=== PATIENT | male | born 1995 | race African-American/Black ===

== ENCOUNTER 2016-04-18 20:32 | Emergency (ER) | payer SELFPAY ==
[~2016-04-18] VITALS: Ht 182.9 cm; Wt 71.0 kg
[2016-04-18 20:35] VITALS: BP 134/85; PULSE 70; RESP 16; TEMP 97.9; O2SAT 98
[2016-04-18] MEDS ORDERED: PROPARACAINE HCL 0.5% OPHT SOLN 15 ML BTL LEFT EYE ONE (21:00)
--- NOTE | 2016-04-18 21:07 | PD ---
HPI Chief Complaint: Eye Problems/Injury Time Seen by Provider: 20:50 Travel History International Travel<30 days: No Contact w/Intl Traveler<30days: No Traveled to known affect area: No History of Present Illness HPI 20-year-old male who presents for evaluation of left eye irritation, foreign body sensation. This afternoon the patient was playing basketball outside. He reports that he threw the ball to someone else and he felt like a piece of dirt went into his left eye. Since then he has had irritation, foreign body sensation in left eye, unrelieved with attempts at washing his eye out at home. No blurred vision. He does not wear contacts or glasses. No other complaints. PFSH Past Medical History Cardiomyopathy: Yes (heart murmur at ) Cardiovascular Problems: Yes (MURMUR, PERICARDITIS) Diminished Hearing: No Immunizations Current: No (unknown) Tetanus Vaccination: < 5 Years Influenza Vaccination: Yes Social History Alcohol Use: No Tobacco Use: No Substance Use: No Allergies-Medications (Allergen,Severity, Reaction): Coded Allergies: Penicillin (Verified Allergy, Severe, Hives, 04/18/16) Reported Meds & Prescriptions Reported Meds & Active Scripts Active No Active Prescriptions or Reported Medications Review of Systems Eyes: Positive: Redness, Foreign Body Sensation, Pain, No: Blurred Vision Physical Exam Narrative GENERAL: Well-developed well-nourished male in no acute distress SKIN: Warm and dry. HEAD: Atraumatic. Normocephalic. EYES: Pupils equal and round reactive to light extraocular muscles are intact. There is left eye conjunctival injection. The left upper eyelid was everted and there was a small black foreign body, likely dirt, lodged underneath the eyelid. Wood's lamp reveals no area of increased corneal uptake, negative Bacilio's. Data Data Last Documented VS Vital Signs Date Time Temp Pulse Resp B/P Pulse Ox O2 Delivery O2 Flow Rate FiO2 04/18/16 20:35 97.9 70 16 134/85 98 Orders Proparacaine 0.5% Opth Soln (Alcaine 0.5 (04/18/16 21:00) MDM Medical Decision Making Medical Screen Exam Complete: Yes Emergency Medical Condition: Yes Medical Record Reviewed: Yes Differential Diagnosis Left eye foreign body, corneal abrasion, ruptured globe, conjunctivitis, iritis , acute angle-closure glaucoma, endophthalmitis, scleral laceration Narrative Course 20-year-old male presents with left eye irritation, foreign body sensation which began after playing basketball outside this afternoon. On examination he has left eye conjunctival injection, small dirt foreign body lodged underneath the left upper eyelid. This was removed utilizing a Q-tip. Repeat examination reveals no evidence of retained foreign body. Wong lamp is negative for corneal abrasion, corneal rupture. The patient feels improved after the administration of proparacaine. He is stable for discharge. Diagnosis Primary Impression: Foreign body of left eye Qualified Code: T15.92XA - Foreign body of left eye, initial encounter Additional Instructions: Follow-up with your primary care physician as needed. Return for any emergent medical conditions. Med/Other Pt SpecificInfo: No Change to Meds Scripts No Active Prescriptions or Reported Meds Disposition: 01 DISCHARGE HOME Condition: Stable Balbir Aguilar Apr 18, 2016 21:07
== END 2016-04-18 21:12 | disposition home or self-care (01) ==
LOC: NEPB 20:32
DX: T15.92XA Foreign body on external eye, part unspecified, left eye, initial encounter (principal)
CPT/HCPCS: 99283

== ENCOUNTER 2016-06-15 19:52 | Emergency (ER) | payer SELFPAY ==
[~2016-06-15] VITALS: Ht 185.4 cm; Wt 68.0 kg
[2016-06-15 19:53] VITALS: BP 132/87; PULSE 71; RESP 18; TEMP 98.1; O2SAT 97
[2016-06-15] MEDS ORDERED: DICL75TA PO (20:49)
--- NOTE | 2016-06-15 20:53 | PD ---
HPI Chief Complaint: Injury Time Seen by Provider: 20:51 Travel History International Travel<30 days: No Contact w/Intl Traveler<30days: No Traveled to known affect area: No History of Present Illness HPI 21 year old black male presents to emergency Department with complaints of left knee pain. He states that he was playing basketball this evening at the gym. He states that his left knee buckled when he went up to block a shot. Since then he has had pain diffusely in the knee. He denies any locking. He denies any prior injury. Pain is moderate. Worse with weightbearing. Some relief with elevation. PFSH Past Medical History Cardiovascular Problems: Yes (MURMUR) Diminished Hearing: No Immunizations Current: No (unknown) Tetanus Vaccination: < 5 Years Past Surgical History Surgical History: No Previous Surgery Social History Alcohol Use: No Tobacco Use: No Substance Use: No Allergies-Medications (Allergen,Severity, Reaction): Coded Allergies: Penicillin (Verified Allergy, Severe, Hives, 06/15/16) Reported Meds & Prescriptions Reported Meds & Active Scripts Active Diclofenac Sodium DR (Diclofenac Sodium) 75 Mg Tabdr 75 Mg PO BID Review of Systems Except as stated in HPI: all other systems reviewed are Neg Physical Exam Narrative GENERAL: This is a well-nourished, well-developed patient, in no apparent distress. SKIN: No rashes, ecchymoses or lesions. Warm and dry. HEAD: Atraumatic. Normocephalic. EYES: PERRL, EOMI, no discharge or injection. No scleral icterus. EARS: Clear NOSE: Nasal turbinates appear normal. THROAT: Mucosa pink and moist. Airway patent. NECK: Trachea midline. supple, moves head freely. LUNGS: Clear to auscultation. CV: Regular in rhythm. ABDOMEN: Soft nontender. EXT: No clubbing cyanosis or edema. Examination left lower extremity reveals no joint effusion. He is full extension but has limited flexion due to pain. No anterior posterior draw. No medial lateral collateral ligament instability or pain. No meniscal pain on testing. Skin is intact. No pain with hip, ankle or foot. Data Data Last Documented VS Vital Signs Date Time Temp Pulse Resp B/P Pulse Ox O2 Delivery O2 Flow Rate FiO2 06/15/16 19:53 98.1 71 18 132/87 97 Room Air Orders Knee, Complete (4vws) (06/15/16 20:25) Ice/Cold Pack (06/15/16 20:25) Splint Or Brace Apply/Monitor (06/15/16 20:49) Crutches (06/15/16 20:49) Naproxen (Naprosyn) (06/15/16 21:00) MDM Medical Decision Making Medical Screen Exam Complete: Yes Emergency Medical Condition: Yes Medical Record Reviewed: Yes Interpretation(s) Left knee: Negative for bony injury. No effusion. Differential Diagnosis MDM: High Differential diagnoses: Fracture, sprain, strain, dislocation, contusion, neurovascular injury Narrative Course Patient's given John wrap, ice pack, crutches and Naprosyn 500 mg by mouth. This is left knee sprain Diagnosis Primary Impression: Left knee sprain Patient Instructions: General Instructions Additional Instructions: Rest. Elevation. Ice packs for the next 3 days. John wrap and crutches. No weight-bearing and then progress to weight-bearing as tolerated. Medications as directed Follow-up with an orthopedist or your doctor in one week. Return to the ER if any problems Med/Other Pt SpecificInfo: Prescription(s) given Scripts Diclofenac Sodium DR 75 Mg Tabdr75 Mg PO BID #20 TAB Prov:Mena Alvarez MD 06/15/16 Disposition: 01 DISCHARGE HOME Condition: Stable Bhargav Arshad Jun 15, 2016 20:53
[2016-06-15] MEDS ORDERED: NAPROXEN 500 MG TAB PO ONE (21:00)
--- NOTE | 2016-06-15 21:18 | RADRPT ---
EXAM DATE/TIME: 06/15/2016 20:43 [facility] COMPARISON: No previous studies available for comparison. INDICATIONS : Left knee pain, hurt playing basketball. MEDICAL HISTORY : None. SURGICAL HISTORY : None. ENCOUNTER: Initial ACUITY: 1 day PAIN SCORE: 10/10 LOCATION: Left lateral knee FINDINGS: No definite fractures, or dislocations are identified. No definite lytic or sclerotic lesion is seen . The joint spaces are well maintained. CONCLUSION: Unremarkable study. Shadia Esquivel MD on June 15, 2016 at 21:16 Board Certified Radiologist. This report was verified electronically.
== END 2016-06-15 21:15 | disposition home or self-care (01) ==
LOC: NEPB 19:52
DX: S83.92XA Sprain of unspecified site of left knee, initial encounter (principal); Y93.39 Activity, other involving climbing, rappelling and jumping off; Y93.67 Activity, basketball; Y92.39 Other specified sports and athletic area as the place of occurrence of the external cause
CPT/HCPCS: 73564; 99283; E0113

== ENCOUNTER 2016-08-09 16:05 | Emergency (ER) | payer SELFPAY ==
[~2016-08-09] VITALS: Ht 185.4 cm; Wt 70.0 kg
[~2016-08-09 16:05] MED LIST: DICL75TA PO
[2016-08-09 16:06] VITALS: BP 120/70; PULSE 70; RESP 15; TEMP 98; O2SAT 98
--- NOTE | 2016-08-09 16:26 | PD ---
HPI Chief Complaint: Injury Time Seen by Provider: 16:21 Travel History International Travel<30 days: No Contact w/Intl Traveler<30days: No Traveled to known affect area: No History of Present Illness HPI 21-year-old male presents emergency Department with complaint of left knee pain 2 months after a basketball injury. He was seen here back in June for the knee injury. He denies new or recent injury. He was told to come in and be evaluated by his boss because he had pain in his knee overnight while at work. He has not followed up with primary care or orthopedic since he was seen here last. He has crutches and John bandage for support which she has not been using either. He has not taken any medications or tried any treatments recently to alleviate his symptoms. Denies fever, chills, nausea, vomiting. Denies paresthesias, loss of sensation, decreased range of motion, decreased strength to the affected extremity. Allergies to penicillin. No other medical complaints. No other modifying factors or associated signs and symptoms. History Social History Alcohol Use: No Tobacco Use: No Allergies-Medications (Allergen,Severity, Reaction): Coded Allergies: Penicillin (Verified Allergy, Severe, Hives, 08/09/16) Reported Meds & Prescriptions Reported Meds & Active Scripts Active Review of Systems Except as stated in HPI: all other systems reviewed are Neg Physical Exam Narrative GENERAL: Well-nourished, well-developed male patient, in no acute distress SKIN: Warm and dry. HEAD: Atraumatic. Normocephalic. EYES: Pupils equal and round. No scleral icterus. No injection or drainage. ENT: Mucosa pink and moist. Airway patent. NECK: Trachea midline. CARDIOVASCULAR: Regular rate. RESPIRATORY: No accessory muscle use. GASTROINTESTINAL: Flat. MUSCULOSKELETAL: Left knee is nonedematous, nonerythematous, and without ecchymosis; with full range of motion and flexion to 90; joint stable with negative drawer test; tenderness to the lateral aspect; no obvious deformity. Left lower extremities supple and nontender 2+ pedal pulses and sensory intact and without erythema or edema. Ambulatory with normal gait. No obvious deformity. No cyanosis. No edema. NEUROLOGICAL: Awake and alert. Oriented 3. No obvious cranial nerve deficits. Motor grossly within normal limits. Normal speech. PSYCHIATRIC: Appropriate mood and affect; insight and judgment normal. Data Data Last Documented VS Vital Signs Date Time Temp Pulse Resp B/P Pulse Ox O2 Delivery O2 Flow Rate FiO2 08/09/16 16:06 98.0 70 15 120/70 98 MDM Medical Screen Exam Complete: Yes Emergency Medical Condition: No Differential Diagnosis Knee sprain, knee pain, medical clearance Narrative Course 21-year-old male with left knee injury 2 months ago with continued pain. He was seen here on June 15 and a left knee x-ray was done and was unremarkable. He has had no new or recent injury. The patient is ambulatory on the affected extremity with a normal gait. He has not followed up outpatient. The patient has crutches and an John bandage at home for support. Vital signs are stable and the patient is stable for outpatient follow-up and treatment. The patient has no urgent or emergent medical complaints. There is no emergent or urgent medical need at this time. I instructed the patient to follow up with their primary care provider. A medical screening exam was performed: At the time of evaluation the presenting medical condition was determined not to be of an emergent nature. The patient was given the option of receiving additional care, but declined. Patient was given options for additional community resources from which to obtain care. The Patient Has Been advised to seek medical attention for their presenting complaint. The patient has been advised to return to the ER at any time if an emergent condition develops. Primary Impression: Encounter for medical screening examination Condition: Stable Gillian Pillai Aug 09, 2016 16:26
== END 2016-08-09 16:35 | disposition left against medical advice (07) ==
LOC: NEPK 16:05
DX: M25.562 Pain in left knee (principal); X58.XXXD Exposure to other specified factors, subsequent encounter
CPT/HCPCS: 99281

== ENCOUNTER 2016-09-10 14:33 | Emergency (ER) | payer SELFPAY ==
[~2016-09-10] VITALS: Ht 182.9 cm; Wt 70.0 kg
[2016-09-10 14:35] VITALS: BP 131/94; PULSE 58; RESP 14; TEMP 98; O2SAT 100
--- NOTE | 2016-09-10 14:44 | PD ---
HPI . chest pain and sob for 4 days Chief Complaint: Respiratory Symptoms Time Seen by Provider: 14:44 Travel History International Travel<30 days: No Contact w/Intl Traveler<30days: No Traveled to known affect area: No History of Present Illness HPI 21-year-old male with no significant past medical history here with complaints of shortness of breath and palpitations for the past 4 days. Patient tells me that he has had some intermittent chest discomfort and palpitations accompanied by some shortness of breath the past 4 days. He denies any similar episodes in the past and that this started at rest. He denies any aggravating or alleviating factors. He tells me there is no specific pattern to his symptoms. The pain is not reproducible. He denies any smoking or illegal drug use. He does have significant family history of heart disease and this issue has made him concerned of his well-being. He is accompanied by his grandmother. At this present time he admitted to some palpitations, but denies any pain. He does not have shortness of breath while here in the emergency department. He's previously been seen in the emergency department for chest pain. He also appears to have a history of panic attacks. He denies any nausea, vomiting or diaphoresis. PFSH Past Medical History Cardiovascular Problems: Yes (MURMUR) Diminished Hearing: No Immunizations Current: No (unknown) Social History Alcohol Use: No Tobacco Use: No Substance Use: No Allergies-Medications (Allergen,Severity, Reaction): Coded Allergies: Penicillin (Verified Allergy, Severe, Hives, 08/09/16) Reported Meds & Prescriptions Reported Meds & Active Scripts Active No Active Prescriptions or Reported Medications Review of Systems General / Constitutional: No: Fever Eyes: No: Visual changes HENT: No: Headaches Cardiovascular: Positive: Chest Pain or Discomfort, Palpitations, Tachycardia Respiratory: Positive: Shortness of Breath, No: Cough, Wheezing, Sneezing Gastrointestinal: No: Abdominal Pain Genitourinary: No: Dysuria Musculoskeletal: No: Pain Skin: No Rash Neurologic: No: Weakness Psychiatric: No: Depression Endocrine: No: Polydipsia Hematologic/Lymphatic: No: Easy Bruising Physical Exam Narrative GENERAL: AAO x 3, no acute distress, Well-nourished, well-developed patient. Comfortable in no signs of distress. SKIN: Warm and dry. No visible rashes or bruising. HEAD: Normocephalic and atraumatic. EYES: No scleral icterus. No injection or drainage. ENT: No nasal drainage noted. Mucous membranes pink. Airway patent. NECK: Supple, trachea midline. No JVD. CARDIOVASCULAR: Regular rate and rhythm without murmurs, gallops, or rubs. Nonreproducible chest pain on exam. RESPIRATORY: Breath sounds equal bilaterally. No accessory muscle use. No rhonchi or rales. GASTROINTESTINAL: Abdomen soft, non-tender, nondistended. EXTREMITIES: No cyanosis or edema. NEURO; CN II through XII intact, sausage stringer strength equal bilaterally. Motor function normal. Upper and lower extremity strength 5/5 BACK: Nontender without obvious deformity. No CVA tenderness. PSYCH: AAO x 3, normal affect. Data Data Last Documented VS Vital Signs Date Time Temp Pulse Resp B/P Pulse Ox O2 Delivery O2 Flow Rate FiO2 09/10/16 14:35 98.0 58 14 131/94 100 Orders Electrocardiogram (09/10/16 14:50) Basic Metabolic Panel (Bmp) (09/10/16 14:50) Ckmb (Isoenzyme) Profile (09/10/16 14:50) Complete Blood Count With Diff (09/10/16 14:50) D-Dimer (09/10/16 14:50) Magnesium (Mg) (09/10/16 14:50) Prothrombin Time / Inr (Pt) (09/10/16 14:50) Act Partial Throm Time (Ptt) (09/10/16 14:50) Troponin I (09/10/16 14:50) Chest, Single Ap (09/10/16 14:50) Iv Access Insert/Monitor (09/10/16 14:50) Sodium Chloride 0.9% Flush (Ns Flush) (09/10/16 15:00) CKMB (09/10/16 15:04) CKMB% (09/10/16 15:04) Labs Laboratory Tests Test 09/10/16 15:04 White Blood Count 7.9 TH/MM3 Red Blood Count 4.91 MIL/MM3 Hemoglobin 14.6 GM/DL Hematocrit 42.3 % Mean Corpuscular Volume 86.2 FL Mean Corpuscular Hemoglobin 29.8 PG Mean Corpuscular Hemoglobin 34.6 % Concent Red Cell Distribution Width 13.4 % Platelet Count 253 TH/MM3 Mean Platelet Volume 7.6 FL Neutrophils (%) (Auto) 58.8 % Lymphocytes (%) (Auto) 27.9 % Monocytes (%) (Auto) 10.7 % Eosinophils (%) (Auto) 2.3 % Basophils (%) (Auto) 0.3 % Neutrophils # (Auto) 4.6 TH/MM3 Lymphocytes # (Auto) 2.2 TH/MM3 Monocytes # (Auto) 0.8 TH/MM3 Eosinophils # (Auto) 0.2 TH/MM3 Basophils # (Auto) 0.0 TH/MM3 CBC Comment DIFF FINAL Differential Comment Prothrombin Time 11.4 SEC Prothromb Time International 1.0 RATIO Ratio Activated Partial 29.9 SEC Thromboplast Time D-Dimer Quantitative (PE/DVT) LESS THAN 0.19 MG/L FEU Sodium Level 142 MEQ/L Potassium Level 3.5 MEQ/L Chloride Level 102 MEQ/L Carbon Dioxide Level 30.2 MEQ/L Anion Gap 10 MEQ/L Blood Urea Nitrogen 10 MG/DL Creatinine 0.97 MG/DL Estimat Glomerular Filtration 116 ML/MIN Rate Random Glucose 81 MG/DL Calcium Level 9.4 MG/DL Magnesium Level 2.2 MG/DL Total Creatine Kinase 260 U/L Creatine Kinase MB LESS THAN 0.5 NG/ML Troponin I LESS THAN 0.02 NG/ML MDM Medical Decision Making Medical Screen Exam Complete: Yes Emergency Medical Condition: Yes Medical Record Reviewed: Yes Differential Diagnosis Pericarditis, less likely ACS, anxiety, costochondritis, pulmonary emboli Narrative Course 21-year-old male here with complaints of intermittent chest pain and shortness of breath. EKG obtained and demonstrated some ST elevation, however this is similar to prior EKGs. Labs have been ordered. Last Impressions Chest X-Ray 09/10/16 1450 Signed Impressions: Service Date/Time: Saturday, September 10, 2016 14:47 - CONCLUSION: No acute disease. Jaiden Ibanez MD [id number]: results reviewed: NO acute abn. Case discussed with Dr. Corral, who recommends discharge. Discussed with patient who is resting comfortably in bed playing on cell phone. He had similar issues in 2014 and had a workup including Echo all WNL. He was recommended to f/u with cardiology. I recommend he f/u with PCP for referral to cardiology and further recommendations. I think he may have some underlying anxiety. Both him and grandma verbalized understanding. Laboratory Tests Test 09/10/16 15:04 White Blood Count 7.9 TH/MM3 Red Blood Count 4.91 MIL/MM3 Hemoglobin 14.6 GM/DL Hematocrit 42.3 % Mean Corpuscular Volume 86.2 FL Mean Corpuscular Hemoglobin 29.8 PG Mean Corpuscular Hemoglobin 34.6 % Concent Red Cell Distribution Width 13.4 % Platelet Count 253 TH/MM3 Mean Platelet Volume 7.6 FL Neutrophils (%) (Auto) 58.8 % Lymphocytes (%) (Auto) 27.9 % Monocytes (%) (Auto) 10.7 % Eosinophils (%) (Auto) 2.3 % Basophils (%) (Auto) 0.3 % Neutrophils # (Auto) 4.6 TH/MM3 Lymphocytes # (Auto) 2.2 TH/MM3 Monocytes # (Auto) 0.8 TH/MM3 Eosinophils # (Auto) 0.2 TH/MM3 Basophils # (Auto) 0.0 TH/MM3 CBC Comment DIFF FINAL Differential Comment Prothrombin Time 11.4 SEC Prothromb Time International 1.0 RATIO Ratio Activated Partial 29.9 SEC Thromboplast Time D-Dimer Quantitative (PE/DVT) LESS THAN 0.19 MG/L FEU Sodium Level 142 MEQ/L Potassium Level 3.5 MEQ/L Chloride Level 102 MEQ/L Carbon Dioxide Level 30.2 MEQ/L Anion Gap 10 MEQ/L Blood Urea Nitrogen 10 MG/DL Creatinine 0.97 MG/DL Estimat Glomerular Filtration 116 ML/MIN Rate Random Glucose 81 MG/DL Calcium Level 9.4 MG/DL Magnesium Level 2.2 MG/DL Total Creatine Kinase 260 U/L Creatine Kinase MB LESS THAN 0.5 NG/ML Troponin I LESS THAN 0.02 NG/ML Patient verbalized understanding of instructions, questions were answered, and thanked me for their care. I advised them if their condition worsens, please return to the nearest emergency room for further care. Diagnosis Primary Impression: Atypical chest pain Patient Instructions: General Instructions Additional Instructions: Please follow-up with your primary care provider. Return to the emergency department if your symptoms return or worsen Med/Other Pt SpecificInfo: No Change to Meds Scripts No Active Prescriptions or Reported Meds Disposition: 01 DISCHARGE HOME Condition: Stable Leonela Sheets September 10, 2016 14:44
[2016-09-10] MEDS ORDERED: SODIUM CHLORIDE 0.9% FLUSH 10 ML FLUSH IVF PRN (15:00)
--- NOTE | 2016-09-10 15:01 | RADRPT ---
EXAM DATE/TIME: 09/10/2016 14:47 [facility] COMPARISON: CHEST SINGLE AP, October 30, 2015, 21:38. INDICATIONS : Chest pain MEDICAL HISTORY : None. SURGICAL HISTORY : None. ENCOUNTER: Initial ACUITY: 2 days PAIN SCORE: 1/10 LOCATION: Bilateral chest FINDINGS: A single view of the chest demonstrates the lungs to be symmetrically aerated without evidence of mas s, infiltrate or effusion. The cardiomediastinal contours are unremarkable. Osseous structures are intact. CONCLUSION: No acute disease. Jaiden Ibanez MD on September 10, 2016 at 14:59 Board Certified Radiologist. This report was verified electronically.
[2016-09-10 15:21] LABS: AUTOMATED NEUTROPHIL # 4.6 TH/MM3 (1.8-7.7); BASOPHIL % 0.3 % (0.0-2.0); EOSINOPHIL # 0.2 TH/MM3 (0-0.4); EOSINOPHIL % 2.3 % (0.0-4.0); HEMATOCRIT 42.3 % (39.0-51.0); HEMO FLAGS DIFF FINAL; LYMPH % 27.9 % (9.0-44.0); LYMPHOCYTE # 2.2 TH/MM3 (1.0-4.8); MEAN CELL VOLUME 86.2 FL (80.0-100.0); MEAN CORPUSCULAR HEMOGLOBIN 29.8 PG (27.0-34.0); MEAN CORPUSCULAR HGB CONC 34.6 % (32.0-36.0); MONO % 10.7 % (0.0-8.0); NEUT % 58.8 % (16.0-70.0); PLATELET COUNT 253 TH/MM3 (150-450); RED BLOOD COUNT 4.91 MIL/MM3 (4.50-5.90); RED CELL DISTRIBUTION WIDTH 13.4 % (11.6-17.2); WHITE BLOOD COUNT 7.9 TH/MM3 (4.0-11.0)
--- NOTE | 2016-09-10 15:21 | PD ---
HPI Chief Complaint: Respiratory Symptoms Time Seen by Provider: 14:44 Travel History International Travel<30 days: No Contact w/Intl Traveler<30days: No Traveled to known affect area: No History of Present Illness HPI 21-year-old male complains of intermittent palpitation and shortness of breath. Patient states that the symptoms started 4 days ago at rest. Patient states that the symptoms are worse with exertion. Patient denies any cough and congestion. Patient states that he has occasional discomfort substernally. Patient denies any pain radiation. Patient denies any nausea vomiting diaphoresis. Patient denies any fever chills. Patient denies any history of CAD disease. Patient denies history hypertension, diabetes, dyslipidemia. Patient is a nonsmoker. Patient denies any history of alcohol or drug abuse. Patient has family history of heart disease. Patient states that he has no chest pain now. Patient complaining of short is of breath. PFSH Past Medical History Cardiovascular Problems: Yes (MURMUR) Diminished Hearing: No Immunizations Current: No (unknown) Social History Alcohol Use: No Tobacco Use: No Substance Use: No Allergies-Medications (Allergen,Severity, Reaction): Coded Allergies: Penicillin (Verified Allergy, Severe, Hives, 08/09/16) Reported Meds & Prescriptions Reported Meds & Active Scripts Active No Active Prescriptions or Reported Medications Review of Systems General / Constitutional: No: Fever Eyes: No: Visual changes HENT: No: Headaches Cardiovascular: Positive: Palpitations, No: Chest Pain or Discomfort Respiratory: Positive: Shortness of Breath Gastrointestinal: No: Abdominal Pain Genitourinary: No: Dysuria Musculoskeletal: No: Pain Skin: No Rash Neurologic: No: Weakness Psychiatric: No: Depression Endocrine: No: Polydipsia Hematologic/Lymphatic: No: Easy Bruising Physical Exam Narrative GENERAL: Well-nourished, well-developed patient. SKIN: Focused skin assessment warm/dry. HEAD: Normocephalic. EYES: No scleral icterus. No injection or drainage. NECK: Supple, trachea midline. No JVD or lymphadenopathy. CARDIOVASCULAR: Regular rate and rhythm without murmurs, gallops, or rubs. RESPIRATORY: Breath sounds equal bilaterally. No accessory muscle use. GASTROINTESTINAL: Abdomen soft, non-tender, nondistended. MUSCULOSKELETAL: No cyanosis, or edema. BACK: Nontender without obvious deformity. No CVA tenderness. Neurologic exam normal. Data Data Last Documented VS Vital Signs Date Time Temp Pulse Resp B/P Pulse Ox O2 Delivery O2 Flow Rate FiO2 09/10/16 14:35 98.0 58 14 131/94 100 Orders Electrocardiogram (09/10/16 14:50) Basic Metabolic Panel (Bmp) (09/10/16 14:50) Ckmb (Isoenzyme) Profile (09/10/16 14:50) Complete Blood Count With Diff (09/10/16 14:50) D-Dimer (09/10/16 14:50) Magnesium (Mg) (09/10/16 14:50) Prothrombin Time / Inr (Pt) (09/10/16 14:50) Act Partial Throm Time (Ptt) (09/10/16 14:50) Troponin I (09/10/16 14:50) Chest, Single Ap (09/10/16 14:50) Iv Access Insert/Monitor (09/10/16 14:50) Sodium Chloride 0.9% Flush (Ns Flush) (09/10/16 15:00) MDM Medical Decision Making Medical Screen Exam Complete: Yes Emergency Medical Condition: Yes Medical Record Reviewed: Yes Interpretation(s) 1521 PM. EKG shows sinus rhythm with diffuse ST elevation typical of early repolarization. Unchanged from previous EKG. Differential Diagnosis Differential diagnosis including URI, cardiac arrhythmia, bronchitis, pneumonia , angina, IN, PE, pneumothorax, pericarditis, myocarditis. Narrative Course 21-year-old male with intermittent shortness of breath and palpitation. Scripts No Active Prescriptions or Reported Meds Isreal Corral MD September 10, 2016 15:21
[2016-09-10 15:45] LABS: CREATINE KINASE 260 U/L (39-308)
[2016-09-10 15:50] LABS: APTT (PATIENT) 29.9 SEC (24.3-30.1); PROTHROMBIN TIME - PATIENT 11.4 SEC (9.8-11.6)
[2016-09-10 15:57] LABS: ANION GAP 10 MEQ/L (5-15); BICARBONATE 30.2 MEQ/L (21.0-32.0); BLOOD UREA NITROGEN 10 MG/DL (7-18); CHLORIDE 102 MEQ/L (98-107); CKMB LESS THAN 0.5 NG/ML (0.5-3.6); GLOMERULAR FILTRATION RATE 116 ML/MIN (>89); MAGNESIUM 2.2 MG/DL (1.5-2.5); POTASSIUM 3.5 MEQ/L (3.5-5.1); SODIUM (NA) 142 MEQ/L (136-145)
--- NOTE | 2016-09-10 17:06 | EKG ---
Date Performed: 09/10/2016 Time Performed: 14:59:19 PTAGE: 21 years EKG: Sinus rhythm Anterior ST elevation consistent with injury, early repolarization R. pericarditis. This is not sig nificantly changed. PREVIOUS TRACING : 10/30/2015 21.28 DOCTOR: Franki Burton Interpretating Date/Time 09/10/2016 17:04:50
== END 2016-09-10 16:14 | disposition home or self-care (01) ==
LOC: NEPD 14:33
DX: R07.89 Other chest pain (principal); R06.02 Shortness of breath; R00.2 Palpitations
CPT/HCPCS: 71010; 80048; 82550; 82552; 83735; 84484; 85025; 85379; 85610; 85730; 93005; 99285

== ENCOUNTER 2016-09-24 10:10 | Emergency (ER) | payer SELFPAY ==
[~2016-09-24] VITALS: Ht 182.9 cm; Wt 68.0 kg
[2016-09-24 10:12] VITALS: BP 138/74; PULSE 84; RESP 16; TEMP 98.2; O2SAT 98
[2016-09-24] MEDS ORDERED: ONDANSETRON HCL 4 MG/2 ML VIAL IVP ONE (11:00)
[2016-09-24] MEDS ORDERED: KETOROLAC TROMETHAMINE 30 MG/ML (IVP) VIAL IVP ONE (11:00)
[2016-09-24] MEDS ORDERED: SODIUM CHLORIDE 0.9% FLUSH 10 ML FLUSH IV FLUSH PRN (11:00)
[2016-09-24] MEDS ORDERED: LIDOCAINE VISCOUS 2% SOLN 15 ML UDC PO ONE (11:00)
[2016-09-24] MEDS ORDERED: ALUMINUM/MAGNESIUM/SIMETH 30 ML CUP PO ONE (11:00)
--- NOTE | 2016-09-24 11:12 | PD ---
HPI Chief Complaint: GI Complaint Time Seen by Provider: 10:54 Travel History International Travel<30 days: No Contact w/Intl Traveler<30days: No Traveled to known affect area: No History of Present Illness HPI Healthy 21-year-old male here with complaint of epigastric and diffuse abdominal pain since approximately 9 PM yesterday. Patient states that he has had a burning achy type pain in the epigastrium that radiates throughout the abdomen. Associated nausea, vomiting 4. No hematemesis. No associated diarrhea, fevers, chills. No recent travel, sick contacts, raw undercooked food , meat, seafood or sushi. He's never previously had any hepatobiliary or pancreatic issues. He does not drink alcohol regularly. [facility] Past Medical History Medical History: Denies Significant Hx Cardiovascular Problems: Yes (MURMUR) Diminished Hearing: No Immunizations Current: No (unknown) Tetanus Vaccination: < 5 Years Past Surgical History Surgical History: No Previous Surgery Social History Alcohol Use: No Tobacco Use: No Substance Use: No Allergies-Medications (Allergen,Severity, Reaction): Coded Allergies: Penicillin (Verified Allergy, Severe, Hives, 09/24/16) Reported Meds & Prescriptions Reported Meds & Active Scripts Active No Active Prescriptions or Reported Medications Review of Systems Except as stated in HPI: all other systems reviewed are Neg Physical Exam Narrative GENERAL: Well-appearing male in no acute distress SKIN: Focused skin assessment warm/dry. HEAD: Normocephalic. EYES: No scleral icterus. No injection or drainage. ENT: Mucous membranes pink and moist. NECK: Supple CARDIOVASCULAR: Regular rate and rhythm. RESPIRATORY: No accessory muscle use. GASTROINTESTINAL: Abdomen soft, minimal epigastric tenderness to palpation without rebound or guarding MUSCULOSKELETAL: Normal gait NEUROLOGICAL: Awake and alert. normal speech. PSYCHIATRIC: Appropriate mood and affect; insight and judgment normal. Data Data Last Documented VS Vital Signs Date Time Temp Pulse Resp B/P Pulse Ox O2 Delivery O2 Flow Rate FiO2 09/24/16 10:12 98.2 84 16 138/74 98 Orders Complete Blood Count With Diff (09/24/16 10:57) Comprehensive Metabolic Panel (09/24/16 10:57) Lipase (09/24/16 10:57) Iv Access Insert/Monitor (09/24/16 10:57) Oximetry (09/24/16 10:57) Ondansetron Inj (Zofran Inj) (09/24/16 11:00) Sodium Chloride 0.9% Flush (Ns Flush) (09/24/16 11:00) Ketorolac Inj (Toradol Inj) (09/24/16 11:00) Al-Mag Hy-Si 40-40-4 Mg/Ml Liq (Mag-Al P (09/24/16 11:00) Lidocaine 2% Viscous (Xylocaine 2% Visco (09/24/16 11:00) Labs Laboratory Tests Test 09/24/16 11:05 White Blood Count 9.8 TH/MM3 Red Blood Count 5.31 MIL/MM3 Hemoglobin 15.6 GM/DL Hematocrit 46.0 % Mean Corpuscular Volume 86.7 FL Mean Corpuscular Hemoglobin 29.4 PG Mean Corpuscular Hemoglobin 33.9 % Concent Red Cell Distribution Width 13.6 % Platelet Count 284 TH/MM3 Mean Platelet Volume 7.5 FL Neutrophils (%) (Auto) 86.4 % Lymphocytes (%) (Auto) 4.1 % Monocytes (%) (Auto) 9.0 % Eosinophils (%) (Auto) 0.4 % Basophils (%) (Auto) 0.1 % Neutrophils # (Auto) 8.5 TH/MM3 Lymphocytes # (Auto) 0.4 TH/MM3 Monocytes # (Auto) 0.9 TH/MM3 Eosinophils # (Auto) 0.0 TH/MM3 Basophils # (Auto) 0.0 TH/MM3 CBC Comment DIFF FINAL Differential Comment Sodium Level 140 MEQ/L Potassium Level 4.0 MEQ/L Chloride Level 103 MEQ/L Carbon Dioxide Level 28.3 MEQ/L Anion Gap 9 MEQ/L Blood Urea Nitrogen 10 MG/DL Creatinine 1.08 MG/DL Estimat Glomerular Filtration 103 ML/MIN Rate Random Glucose 94 MG/DL Calcium Level 9.0 MG/DL Total Bilirubin 0.6 MG/DL Aspartate Amino Transf 15 U/L (AST/SGOT) Alanine Aminotransferase 21 U/L (ALT/SGPT) Alkaline Phosphatase 81 U/L Total Protein 8.3 GM/DL Albumin 3.9 GM/DL Lipase 90 U/L [facility] Medical Decision Making Medical Screen Exam Complete: Yes Emergency Medical Condition: Yes Medical Record Reviewed: Yes Differential Diagnosis 21-year-old male here with complaint of epigastric and diffuse abdominal pain with nausea vomiting 4 since yesterday evening. Differential includes pancreatitis, hepatobiliary pathology, gastritis, peptic ulcer disease and less likely peritoneal pathology given her overall benign abdominal examination. Narrative Course Patient placed on monitor, IV established and blood obtained. Given 4 mg Zofran , 30 mg Toradol and GI cocktail. CBC, CMP, lipase unremarkable. Patient felt improved and will be discharged home. Diagnosis Primary Impression: Gastritis Qualified Code: K29.00 - Acute gastritis without hemorrhage, unspecified gastritis type Referrals: [facility] as needed Primary Care Physician as needed Additional Instructions: Phenergan as needed for nausea, vomiting. Advance diet slowly. Med/Other Pt SpecificInfo: Prescription(s) given Scripts Promethazine (Phenergan)25 Mg [id number] Mg PO Q6H PRN (NAUSEA OR VOMITING) #10 TAB Ref 0 Prov:Yvette Santana MD 09/24/16 Disposition: 01 DISCHARGE HOME Condition: Stable Yvette Santana MD Sep 24, 2016 11:12
[2016-09-24 11:20] VITALS: BP 117/83; RESP 18; TEMP 98.4; O2SAT 97
[2016-09-24 11:20] LABS: AUTOMATED NEUTROPHIL # 8.5 TH/MM3 (1.8-7.7); BASOPHIL % 0.1 % (0.0-2.0); EOSINOPHIL % 0.4 % (0.0-4.0); HEMO FLAGS DIFF FINAL; LYMPH % 4.1 % (9.0-44.0); LYMPHOCYTE # 0.4 TH/MM3 (1.0-4.8); MEAN CELL VOLUME 86.7 FL (80.0-100.0); MEAN CORPUSCULAR HEMOGLOBIN 29.4 PG (27.0-34.0); MEAN CORPUSCULAR HGB CONC 33.9 % (32.0-36.0); NEUT % 86.4 % (16.0-70.0); PLATELET COUNT 284 TH/MM3 (150-450); RED BLOOD COUNT 5.31 MIL/MM3 (4.50-5.90); RED CELL DISTRIBUTION WIDTH 13.6 % (11.6-17.2); WHITE BLOOD COUNT 9.8 TH/MM3 (4.0-11.0)
[2016-09-24 11:33] LABS: ANION GAP 9 MEQ/L (5-15); AST (GOT) 15 U/L (15-37); BICARBONATE 28.3 MEQ/L (21.0-32.0); BLOOD UREA NITROGEN 10 MG/DL (7-18); CHLORIDE 103 MEQ/L (98-107); GLOMERULAR FILTRATION RATE 103 ML/MIN (>89); SODIUM (NA) 140 MEQ/L (136-145)
[2016-09-24 11:35] LABS: ALT (GPT) 21 U/L (12-78)
[2016-09-24 11:36] LABS: ALKALINE PHOSPHATASE 81 U/L (45-117); TOTAL BILIRUBIN ADULT 0.6 MG/DL (0.2-1.0)
[2016-09-24] MEDS ORDERED: PROM25TA10 PO (11:40)
== END 2016-09-24 12:12 | disposition home or self-care (01) ==
LOC: NEPD 10:10
DX: K29.70 Gastritis, unspecified, without bleeding (principal); R11.2 Nausea with vomiting, unspecified
CPT/HCPCS: 80053; 83690; 85025; 96374; 96375; 99284; J1885; J2405